=== PATIENT | male | born 1960 | race Caucasian/White ===

== ENCOUNTER 2017-12-21 10:18 | Day surgery (SDC) | payer BC, SELFPAY ==
[2017-12-21 11:01] VITALS: BP 142/76; PULSE 62; RESP 16; TEMP 36.3; O2SAT 96; BMI 34.1
[2017-12-21 11:54] VITALS: BP 112/75; BP 142/76; PULSE 72; RESP 16; TEMP 36.1; O2SAT 97
[2017-12-21 12:05] VITALS: BP 111/78; BP 142/76; PULSE 65; RESP 16; O2SAT 97
[2017-12-21 12:10] VITALS: BP 118/82; BP 142/76; PULSE 66; RESP 16; O2SAT 97
[2017-12-21 12:18] VITALS: BP 127/87; BP 142/76; PULSE 68; RESP 16; TEMP 36.1; O2SAT 98
--- NOTE | 2017-12-21 15:29 | OP.PCM_ITS ---
Report of Operation Date of Procedure: 12/21/17 Pre-Operative Diagnosis: screening for colon cancer Post-Operative Diagnosis: same - normal colon Surgery/Procedure Performed:: colonoscopy Description of Surgical Findings:: normal colon - no evidence of any masses or polyps, minimal internal hemorrhoids Type of Anesthesia:: MAC Anesthesiologist: Rylan Otoole Specimen's removed: none Estimated Blood Loss (mL): none Fluids Replaced: see anesthesia note Description of Procedure: After informed consent was given, the patient was brought to the endoscopy suite. Appropriate time out protocol was followed. He was then placed in the supine position. Appropriate cardiac, blood pressure, and pulse oximetry monitoring was placed. After stable vital signs were noted, the patient was given intravenous conscious sedation. The patient was then placed in the left lateral decubitis position. The colonoscope was lubricated and carefully inserted into the patient?s anus. It was then advanced into the rectum, then into the sigmoid colon, then into the left descending colon, past the splenic flexure, into the transverse colon, past the hepatic flexure, then down into the right descending colon and into the cecum. The cecum was identified by: transillumination, confluence of the tenae coli, identification of the ileocecal valve and appendiceal orifice, and external pressure with indentation. The cecum appeared to be not retroperitonealized. At this point, the colonoscope was slowly retracted back and the entire colonic mucosa was examined. There was no evidence of extrinsic compression and no inflammatory changes were noted. The colon cleansing preparation was adequate, there was still some solid and liquid fecal material that required some time with lavage and aspiration to clear the wright adequately. No intraluminal obstructing lesions, no strictures, and no ulcers were noted. Retroflex view in the rectum revealed no lesions in the rectal vault except for hemorrhoids. The colonoscope was removed intact. Patient tolerated procedure well. - Complications none noted
== END 2017-12-21 12:42 | disposition home or self-care (01) ==
LOC: EN 10:19 → AC 10:22
PROVIDERS: Family Provider Family Medicine; PCP Family Medicine; Visit Provider Surgery
PROC: 0DJD8ZZ Inspection of Lower Intestinal Tract, Via Natural or Artificial Opening Endoscopic (ICD-10-PCS; CPT 45378; principal; 2017-12-21 11:25)
DX: Z12.11 Encounter for screening for malignant neoplasm of colon (principal); K64.8 Other hemorrhoids; I10 Essential (primary) hypertension; I25.2 Old myocardial infarction; Z87.01 Personal history of pneumonia (recurrent)
CPT/HCPCS: 45378; J7120